=== PATIENT | female | born 1930 | race Caucasian/White ===

== ENCOUNTER 2016-11-10 14:54 | Observation (INO) | payer OTHER ==
[~2016-11-10] VITALS: Ht 149.9 cm; Wt 63.0 kg
[~2016-11-10 14:54] MED LIST: Ativan PO; Buspar PO; CYMBALTA30 MG PO; DIOVAN HCT 11 TABLET PO; DIOVAN HCT 31 TABLET PO; DIOVAN HCT 81 TABLET PO; LORAZEPAM0.5 MG PO; LUTIEN PO; OCUVITE1 TABLET PO; OMEGA 3-6-91200 MG PO; OYST-CAL D, OS500 M1 PO; PLAVIX75 MG PO; PRAVACHOL40 MG PO; VENLAFAXINE HCL75 M3 PO; Zantac PO; Zocor PO
[2016-11-10 15:32] LABS: EOSINOPHIL (%) 1.1 % (0-5); EOSINOPHIL COUNT 0.1 K/uL (0-0.3); HEMATOCRIT 37.5 % (36.0-46.0); IMMATURE GRANULOCYTE (%) 0.2 % (0.0-0.7); IMMATURE GRANULOCYTE COUNT 0.1 K/uL; LYMPHOCYTE COUNT 1.3 K/uL (1.0-2.8); MCH 30.8 PG (29.0-34.0); MCHC 34.1 G/DL (30.0-36.0); MCV 90.4 FL (83-99); MEAN PLAT.VOLUME 9.3 uM^3 (9.5-12.4); MONOCYTE (%) 8.5 % (3-12); MONOCYTE COUNT 0.6 K/uL (0-0.8); NEUTROPHIL (%) 70.1 % (45-76); NEUTROPHIL COUNT 4.6 K/uL (1.8-6.4); PLATELET COUNT 204 K/uL (156-360); RBC DIS.WIDTH-CV 12.4 % (11.8-14.6); RBC DIS.WIDTH-SD 40.3 % (39-53); RED BLOOD COUNT 4.15 M/uL (3.80-5.20); WHITE BLOOD COUNT 6.6 K/uL (4.1-10.2)
[2016-11-10 15:45] LABS: CHLORIDE 101 mEq/L (99-109); POTASSIUM 4.1 mEq/L (3.7-5.4); SODIUM 138 mEq/L (136-147)
[2016-11-10 15:47] LABS: GLUCOSE 148 mg/dL (70-99)
[2016-11-10 15:48] LABS: ANION GAP 13 MEQ/L (2-14)
[2016-11-10 15:51] LABS: GFR ESTIMATE (CALCULATED) 45 mL/min/
[2016-11-10 15:52] LABS: UREA NITROGEN (BUN) 27 mg/dL (9-23)
[2016-11-10 15:59] LABS: TROP-I INTERPRETATION NEGATIVE; TROPONIN-I < 0.01 ng/mL (0.0-0.30)
[2016-11-10 21:04] VITALS: BP 133/83
[2016-11-10 22:27] LABS: INFLUENZA A VIRAL ANTIGEN NEGATIVE; INFLUENZA B VIRAL ANTIGEN NEGATIVE
[2016-11-10 22:36] LABS: TROP-I INTERPRETATION NEGATIVE; TROPONIN-I < 0.01 ng/mL (0.0-0.30)
[2016-11-11 00:15] VITALS: BP 130/75
[2016-11-11 04:36] VITALS: BP 147/71
[2016-11-11 04:50] LABS: HEMATOCRIT 35.5 % (36.0-46.0); MCH 30.6 PG (29.0-34.0); MCHC 33.8 G/DL (30.0-36.0); MCV 90.6 FL (83-99); MEAN PLAT.VOLUME 9.8 uM^3 (9.5-12.4); PLATELET COUNT 191 K/uL (156-360); RBC DIS.WIDTH-CV 12.3 % (11.8-14.6); RBC DIS.WIDTH-SD 39.8 % (39-53); RED BLOOD COUNT 3.92 M/uL (3.80-5.20); WHITE BLOOD COUNT 5.3 K/uL (4.1-10.2)
[2016-11-11 04:59] LABS: CHLORIDE 104 mEq/L (99-109); POTASSIUM 4.3 mEq/L (3.7-5.4); SODIUM 139 mEq/L (136-147)
[2016-11-11 05:03] LABS: ANION GAP 9 MEQ/L (2-14)
[2016-11-11 05:04] LABS: GLUCOSE 95 mg/dL (70-99); TOTAL BILIRUBIN 0.6 mg/dL (0.0-1.0)
[2016-11-11 05:05] LABS: ALKALINE PHOSPHATASE 56 IU/L (3-129); GFR ESTIMATE (CALCULATED) 56 mL/min/
[2016-11-11 05:06] LABS: UREA NITROGEN (BUN) 29 mg/dL (9-23)
[2016-11-11 05:14] LABS: TROP-I INTERPRETATION NEGATIVE; TROPONIN-I < 0.01 ng/mL (0.0-0.30)
[2016-11-11 07:34] VITALS: BP 130/76
[2016-11-11 12:17] VITALS: BP 168/90
[2016-11-11] MEDS ORDERED: DIOVAN HCT 11 TABLET PO (13:33)
[2016-11-11] MEDS ORDERED: VENLAFAXINE HCL75 M3 PO (13:34)
[2016-11-11] MEDS ORDERED: LORAZEPAM0.5 MG PO (13:35)
[2016-11-11] MEDS ORDERED: HYDROCODON-ACE1 EAC7 PO (13:37)
[2016-11-11] MEDS ORDERED: OXYBUTYNIN CHLOR5 MG PO (13:37)
[2016-11-11] MEDS ORDERED: BIOTIN 5000MCG PO (13:38)
[2016-11-11] MEDS ORDERED: OMEGA-31000 M1 PO (13:38)
[2016-11-11] MEDS ORDERED: VITAMIN D-32000 UNI2 PO (13:38)
[2016-11-11 16:16] VITALS: BP 148/68
== END 2016-11-11 16:24 | disposition home or self-care (01) ==
LOC: EME → EDBD 14:54 → EME 14:54 → EDOF 19:43 → 5WEST 20:29
PROVIDERS: Emergency Medicine; Internal Medicine
DX: R07.89 Other chest pain (principal); K52.9 Noninfective gastroenteritis and colitis, unspecified; M25.512 Pain in left shoulder; R49.0 Dysphonia; I10 Essential (primary) hypertension; E78.5 Hyperlipidemia, unspecified; F32.9 Major depressive disorder, single episode, unspecified; Z91.81 History of falling; R29.6 Repeated falls
CPT/HCPCS: 71010; 73030; 80048; 80053; 83630; 84484; 85025; 85027; 87493; 87502; 93005; 99281; 99285; G0378; G8987 GO CH; G8988 GO CH; G8989 GO CH; J1644; J7030

== ENCOUNTER 2018-05-01 14:08 | Observation (INO) | payer OTHER ==
[~2018-05-01] VITALS: Ht 149.9 cm; Wt 58.4 kg
[~2018-05-01 14:08] MED LIST changes: +BIOTIN 5000MCG PO; +HYDROCODON-ACE1 EAC7 PO; +OMEGA-31000 M1 PO; +OXYBUTYNIN CHLOR5 MG PO; +VITAMIN D-32000 UNI2 PO
[2018-05-01 15:24] LABS: HEMATOCRIT 34.8 % (36.0-46.0); HEMOGLOBIN 12.1 G/DL (11.9-15.5); MCH 31.8 PG (29.0-34.0); MCHC 34.8 G/DL (30.0-36.0); MCV 91.3 FL (83-99); PLATELET COUNT 231 K/uL (156-360); RBC DIS.WIDTH-CV 12.3 % (11.8-14.6); RBC DIS.WIDTH-SD 40.7 % (39-53); RED BLOOD COUNT 3.81 M/uL (3.80-5.20); WHITE BLOOD COUNT 8.4 K/uL (4.1-10.2)
[2018-05-01 15:32] LABS: PTT 24.7 SEC (25-37)
[2018-05-01 15:38] LABS: CHLORIDE 101 mEq/L (99-109); POTASSIUM 3.8 mEq/L (3.7-5.4); SODIUM 137 mEq/L (136-147)
[2018-05-01 15:40] LABS: GLUCOSE 114 mg/dL (70-99)
[2018-05-01 15:44] LABS: CREATININE 0.9 mg/dL (0.6-1.3); GFR ESTIMATE (CALCULATED) > 59 mL/min/
[2018-05-01 15:45] LABS: UREA NITROGEN (BUN) 22 mg/dL (9-23)
[2018-05-01 15:52] LABS: TROP-I INTERPRETATION NEGATIVE; TROPONIN-I < 0.01 ng/mL (0.0-0.30)
[2018-05-01 22:12] VITALS: BP 188/104
[2018-05-01 23:40] VITALS: BP 162/87
[2018-05-02 04:00] VITALS: BP 135/71
[2018-05-02 06:40] LABS: HEMATOCRIT 33.3 % (36.0-46.0); HEMOGLOBIN 11.3 G/DL (11.9-15.5); MCH 30.5 PG (29.0-34.0); MCHC 33.9 G/DL (30.0-36.0); PLATELET COUNT 205 K/uL (156-360); RBC DIS.WIDTH-CV 12.1 % (11.8-14.6); RBC DIS.WIDTH-SD 39.4 % (39-53); WHITE BLOOD COUNT 7.9 K/uL (4.1-10.2)
[2018-05-02 07:03] LABS: ALKALINE PHOSPHATASE 51 IU/L (3-129); ALT (GPT) 11 IU/L (3-49); AST (GOT) 15 IU/L (2-34); CHLORIDE 99 MEQ/L (99-109); CREATININE 0.8 MG/DL (0.6-1.3); GFR ESTIMATE (CALCULATED) > 59 mL/min/; GLUCOSE 112 mg/dL (70-99); POTASSIUM 3.9 MEQ/L (3.7-5.4); SODIUM 137 MEQ/L (136-147); UREA NITROGEN (BUN) 14 mg/dL (9-23)
[2018-05-02 07:33] LABS: APPEARANCE CLEAR ((CLEAR)); BILIRUBIN NEGATIVE; BLOOD NEGATIVE; COLOR STRAW ((YELLOW)); GLUCOSE (STRIP) NEGATIVE; KETONES NEGATIVE; LEUKOCYTES TRACE; NITRITE NEGATIVE; PROTEIN (STRIP) NEGATIVE; SPECIFIC GRAVITY 1.018 (1.000-1.030); UROBILINOGEN 0.2 MG/DL (0.2-1.0)
[2018-05-02 07:48] VITALS: BP 137/83
[2018-05-02 08:05] LABS: BACTERIA RARE /HPF; EPITHELIAL CELLS RARE /HPF; MUCUS TRACE /LPF; RED BLOOD CELLS 0-5 /HPF (0-5); UCUL ADDED? YES
[2018-05-02 11:28] VITALS: BP 150/80
[2018-05-02] MEDS ORDERED: HYDROCODON-ACE1 EAC7 PO (13:21)
== END 2018-05-02 16:51 | disposition home or self-care (01) ==
LOC: EME 14:08 → EDOF 20:22 → 3EAST 20:22 → EDOF 20:22 → ENRESERV 20:32 → CANRESERV 20:32 → ENRESERV 20:35 → 3EAST 21:58
PROVIDERS: Nurse Practitioner Family; Surgery
PROC: B246ZZZ Ultrasonography of Right and Left Heart (ICD-10-PCS; principal; 2018-05-02)
DX: S22.20XA Unspecified fracture of sternum, initial encounter for closed fracture (principal); V43.52XA Car driver injured in collision with other type car in traffic accident, initial encounter; K44.9 Diaphragmatic hernia without obstruction or gangrene; M85.80 Other specified disorders of bone density and structure, unspecified site; M48.54XA Collapsed vertebra, not elsewhere classified, thoracic region, initial encounter for fracture; S89.92XA Unspecified injury of left lower leg, initial encounter; W22.8XXA Striking against or struck by other objects, initial encounter; I10 Essential (primary) hypertension; Z85.828 Personal history of other malignant neoplasm of skin; Z60.2 Problems related to living alone
CPT/HCPCS: 70450; 71045; 71260; 72125; 72129; 72132; 74177; 80048; 80053; 81003; 84484; 85027; 85610; 85730; 86850; 86900; 86901; 87086; 93005; 93306; G0378; G8978 GP CI; G8979 GP CH; G8980 GP CI; J3010